=== PATIENT | female | born 1980 | race Caucasian/White ===

== ENCOUNTER 2024-02-01 00:20 | Emergency (ER) | payer MEDICAID ==
[~2024-02-01] VITALS: Ht 48.3 cm; Wt 3.9 kg
[2024-02-01 01:14] LABS: BASOPHILS % 0.4 % (0.0-2.0); EOSINOPHILS % 0.1 % (0.0-5.0); HEMATOCRIT. 35.5 % (36.0-48.0); HEMOGLOBIN. 11.3 g/dL (12.0-16.0); LYMPHOCYTES % 11.3 % (20.0-50.0); MEAN CORPUSCULAR HEMOGLOBIN 25.5 pg (28.0-32.0); MEAN CORPUSCULAR HGB CONC 31.8 g/dL (31.0-37.0); MEAN CORPUSCULAR VOLUME 80.2 fL (81.0-99.0); MEAN PLATELET VOLUME 9.2 fl (7.4-10.4); MONOCYTES % 3.8 % (2.0-8.0); NEUTROPHILS % 84.4 % (40.0-76.0); PLATELET 254 x1000/uL (130-400); RED BLOOD CELL COUNT 4.43 mill/uL (4.2-5.4); RED CELL DISTRIBUTION WIDTH 15.8 % (11.6-14.6)
[2024-02-01 01:22] LABS: CARBON DIOXIDE 18 mEq/L (21-32); CHLORIDE 108 mEq/L (98-107); POTASSIUM 3.8 mEq/L (3.5-5.1); SODIUM 137 mEq/L (136-145)
[2024-02-01 01:23] LABS: CALCIUM 8.5 mg/dL (8.7-10.4)
[2024-02-01 01:28] LABS: CREATININE 0.6 mg/dL (0.6-1.0); GLUCOSE 167 mg/dL (70-105); UREA NITROGEN BLOOD 8 mg/dL (9-23)
[2024-02-01 01:29] LABS: ALANINE AMINOTRANSFERASE 14 IU/L (10-49); ASPARTATE AMINOTRANSFERASE 18 IU/L (<34)
[2024-02-01 01:30] LABS: ALBUMIN 3.5 g/dL (3.2-4.8); BILIRUBIN TOTAL 0.4 mg/dL (0.1-1.0); PROTEIN TOTAL 6.1 g/dL (6.0-8.3)
[2024-02-01] MEDS: OXYTOCIN 30 UNITS/500ML NS 500 ML IV ONE (01:58)
[2024-02-01 03:01] VITALS: BP 142/78; PULSE 80; RESP 14; TEMP 36.61404; O2SAT 100
== END 2024-02-01 04:05 | disposition short-term general hospital (02) ==
LOC: ER 00:20 → EDBD 00:20 → ER 04:05
DX: O45.93 Premature separation of placenta, unspecified, third trimester (principal); O26.893 Other specified pregnancy related conditions, third trimester; Z3A.00 Weeks of gestation of pregnancy not specified; Z37.9 Outcome of delivery, unspecified
CPT/HCPCS: 80053; 85025; 36415; 96365; 99285; Z7610; J2590